=== PATIENT | female | born 1990 | race Caucasian/White ===

== ENCOUNTER 2018-08-28 20:27 | Emergency (ER) | payer SELFPAY ==
[~2018-08-28] VITALS: Ht 167.6 cm; Wt 83.0 kg
[~2018-08-28 20:27] MED LIST: PREN1TAB49 PO; [UNRECOGNIZED DRUG - CODE] PO
[2018-08-28 20:52] VITALS: BP 123/93; PULSE 65; RESP 18; Ht 167.6 cm; Wt 83.0 kg
== END 2018-08-29 00:49 | disposition left against medical advice (07) ==
LOC: FTE 20:27
DX: Z53.21 Procedure and treatment not carried out due to patient leaving prior to being seen by health care provider (principal)